=== PATIENT | male | born 1975 | race Caucasian/White ===

== ENCOUNTER 2021-05-22 14:03 | Inpatient (IN) | payer OTHER ==
--- NOTE | 2021-05-22 17:56 | ED ---
General Adult HPI - General Chief complaint: Upper Respiratory Infection Stated complaint: Cough Time Seen by Provider: 05/22/21 17:45 Source: patient, family (mom), RN notes reviewed, old records reviewed Limitations: no limitations - History of Present Illness Initial comments: Well-appearing 45-year-old male, alert and oriented 4, presents to the emergency room with complaints of 3 weeks of shortness of breath, cough and body aches. Patient states he had a tele-health visit and was prescribed a Z-Neil and prednisone with albuterol. He states he has not been using the albuterol regularly. Patient states he continues to have shortness of breath with exertion. He denies any fevers. His is positive for coronavirus. He denies any other medical history, is a nonsmoker. -: days(s) (13) Location: chest Radiation: non-radiation Severity scale (1-10): 0 Consistency: constant Improves with: rest Worsens with: other (exertion) Associated Symptoms: cough, loss of appetite, shortness of breath Treatments Prior to Arrival: other (zpack, steroids, albuterol) - Related Data Home Medications Medication Instructions Recorded Confirmed Albuterol Inhaler [Ventolin Hfa 2 puff INHALATION RT-Q4H PRN 05/22/21 05/22/21 Inhaler] Ascorbic Acid [Vitamin C] 500 mg PO DAILY 05/22/21 05/22/21 Benzonatate [Tessalon Perles] 100 mg PO TID PRN 05/22/21 05/22/21 Cholecalciferol (Vitamin D3) 125 mcg PO DAILY 05/22/21 05/22/21 [Vitamin D3 (125 MCG = 5,000 IU)] Zinc Gluconate [Zinc] 50 mg PO DAILY 05/22/21 05/22/21 predniSONE 50 mg PO DAILY 05/22/21 05/22/21 Previous Rx's Medication Instructions Recorded Albuterol Inhaler [Ventolin Hfa 2 puff INHALATION RT-QID PRN #8 gm 05/22/21 Inhaler] Allergies Allergy/AdvReac Type Severity Reaction Status Date / Time No Known Allergies Allergy Verified 05/22/21 21:49 Review of Systems ROS Statement: Those systems with pertinent positive or pertinent negative responses have been documented in the HPI. ROS Other: All systems not noted in ROS Statement are negative. Past Medical History Past Medical History: No Reported History History of Any Multi-Drug Resistant Organisms: None Reported Past Surgical History: Orthopedic Surgery Past Psychological History: No Psychological Hx Reported Smoking Status: Never smoker Past Alcohol Use History: None Reported Past Drug Use History: None Reported General Exam Limitations: no limitations General appearance: alert, in no apparent distress Head exam: Present: atraumatic, normocephalic, normal inspection Eye exam: Present: normal appearance, EOMI. Absent: scleral icterus, conjunctival injection, periorbital swelling ENT exam: Present: normal exam, normal oropharynx, mucous membranes moist Neck exam: Present: normal inspection, full ROM. Absent: tenderness, meningismus, lymphadenopathy, thyromegaly Respiratory exam: Present: normal lung sounds bilaterally. Absent: respiratory distress, wheezes, rales, rhonchi, stridor Cardiovascular Exam: Present: regular rate, normal rhythm, normal heart sounds. Absent: systolic murmur, diastolic murmur, rubs, gallop, clicks GI/Abdominal exam: Present: soft, normal bowel sounds. Absent: distended, tenderness, guarding, rebound, rigid Extremities exam: Present: normal inspection, full ROM, normal capillary refill. Absent: tenderness, pedal edema, joint swelling, calf tenderness Back exam: Absent: tenderness, CVA tenderness (R), CVA tenderness (L) Neurological exam: Present: alert, oriented X3 Psychiatric exam: Present: normal affect, normal mood Skin exam: Present: warm, dry, intact, normal color. Absent: rash, cyanosis, diaphoretic, petechiae, pallor Course Vital Signs 05/22/21 05/22/21 05/22/21 14:41 17:43 18:00 Temperature 98.1 F Pulse Rate 98 93 Respiratory 18 18 Rate Blood Pressure 134/93 166/90 O2 Sat by Pulse 88 L 84 L 92 L Oximetry 05/22/21 05/22/21 05/22/21 18:30 20:00 20:41 Temperature Pulse Rate Respiratory 18 Rate Blood Pressure 144/84 O2 Sat by Pulse 90 L Oximetry 05/22/21 05/22/21 21:00 21:15 Temperature Pulse Rate 87 Respiratory 18 Rate Blood Pressure 136/86 O2 Sat by Pulse 93 L 92 L Oximetry - Reevaluation(s) Reevaluation #1: 05/22/21 20:32 Patient was given albuterol treatment his oxygen saturation is 93% on room air. Will continue to monitor oxygen saturation with plan to discharge if no further hypoxia Time: 20:32 Medical Decision Making - Medical Decision Making Well-appearing 45-year-old male, alert and oriented 4, presents to the emergency room with complaints of 3 weeks of shortness of breath, cough and body aches. He denies chest pain, nausea or vomiting. He was prescribed a Z-Neil and prednisone with albuterol and continues to have shortness of breath with exertion. He denies any fevers. His is also positive for Covid. He denies any other medical history, he is a nonsmoker. Chest x-ray shows patchy bilateral interstitial and airspace pneumonia. Patient is coronavirus positive. He has oxygen saturation 87% on room air after albuterol. Labs show white blood cell count 12.7 with a left shift. Patient was given albuterol, Tylenol and 500 mL bolus normal saline in the emergency room. He will be admitted with hypoxia and covid. Case discussed with Dr. Farnsworth. - Lab Data Result diagrams: 05/22/21 19:32 05/22/21 19:32 Lab Results 05/22/21 05/22/21 05/22/21 Range/Units 14:44 19:32 19:32 WBC 12.7 H (3.8-10.6) k/uL RBC 5.64 (4.30-5.90) m/uL Hgb 17.6 H (13.0-17.5) gm/dL Hct 54.8 H (39.0-53.0) % MCV 97.3 (80.0-100.0) fL MCH 31.2 (25.0-35.0) pg MCHC 32.1 (31.0-37.0) g/dL RDW 12.6 (11.5-15.5) % Plt Count 393 (150-450) k/uL MPV 9.0 Neutrophils % 82 % Lymphocytes % 10 % Monocytes % 5 % Eosinophils % 0 % Basophils % 1 % Neutrophils # 10.4 H (1.3-7.7) k/uL Lymphocytes # 1.3 (1.0-4.8) k/uL Monocytes # 0.6 (0-1.0) k/uL Eosinophils # 0.0 (0-0.7) k/uL Basophils # 0.1 (0-0.2) k/uL Sodium 136 L (137-145) mmol/L Potassium 5.9 H (3.5-5.1) mmol/L Chloride 103 (98-107) mmol/L Carbon Dioxide 21 L (22-30) mmol/L Anion Gap 12 mmol/L BUN 26 H (9-20) mg/dL Creatinine 0.91 (0.66-1.25) mg/dL Est GFR (CKD-EPI)AfAm >90 (>60 ml/min/1.73 sqM) Est GFR (CKD-EPI)NonAf >90 (>60 ml/min/1.73 sqM) Glucose 103 H (74-99) mg/dL Calcium 8.7 (8.4-10.2) mg/dL Coronavirus (PCR) Detected A (Not Detectd) Disposition Clinical Impression: COVID-19, Hypoxia Disposition: ADMITTED IP TO THIS [facility] Condition: Good Is patient prescribed a controlled substance at d/c from ED?: No Decision Date: 05/22/21 Decision Time: 20:55
[2021-05-22] MEDS ORDERED: SODIUM CHLORIDE 0.9% 500 ML 500 ML IV STA (18:32)
[2021-05-22] MEDS ORDERED: ALBUTEROL HFA INHALER INHALATION STA (18:57)
--- NOTE | 2021-05-22 19:08 | XR ---
EXAMINATION TYPE: XR chest 2V DATE OF EXAM: 05/22/2021 COMPARISON: NONE HISTORY: Cough. Short of breath TECHNIQUE: 2 views FINDINGS: Heart and mediastinum are normal. There is some patchy bilateral interstitial and airspace infiltrate throughout the lungs. There are no hilar masses. Mediastinum within normal limits. There i s no pleural effusion. Bony thorax is intact. IMPRESSION: Patchy bilateral interstitial and airspace pneumonia.
[2021-05-22 20:05] LABS: African American GFR (CKD) >90 (>60 ml/min/1.73 sqM); Anion Gap 12 mmol/L; Blood Urea Nitrogen 26 mg/dL (9-20); Calcium 8.7 mg/dL (8.4-10.2); Carbon Dioxide 21 mmol/L (22-30); Chloride 103 mmol/L (98-107); Glucose 103 mg/dL (74-99); Non-African American GFR(CKD) >90 (>60 ml/min/1.73 sqM); Sodium 136 mmol/L (137-145)
[2021-05-22 20:12] LABS: Potassium 5.9 mmol/L (3.5-5.1)
[2021-05-22 20:27] LABS: Basophils # (A) 0.1 k/uL (0-0.2); Basophils % (A) 1 %; Eosinophils % (A) 0 %; HCT 54.8 % (39.0-53.0); HGB 17.6 gm/dL (13.0-17.5); Lymphocytes # (A) 1.3 k/uL (1.0-4.8); Lymphocytes % (A) 10 %; MCH 31.2 pg (25.0-35.0); MCHC 32.1 g/dL (31.0-37.0); MCV 97.3 fL (80.0-100.0); Monocytes # (A) 0.6 k/uL (0-1.0); Monocytes % (A) 5 %; Neutrophils # (A) 10.4 k/uL (1.3-7.7); Neutrophils % (A) 82 %; Platelet Count 393 k/uL (150-450); RBC 5.64 m/uL (4.30-5.90); RDW 12.6 % (11.5-15.5); WBC 12.7 k/uL (3.8-10.6)
[2021-05-22] MEDS ORDERED: ACETAMINOPHEN TAB 325 MG TAB PO PRN (20:55)
[2021-05-22] MEDS ORDERED: NALOXONE 0.4 MG/ML 1 ML VIAL IV PRN (20:55)
[2021-05-22] MEDS ORDERED: ALBUTEROL HFA INHALER INHALATION PRN (23:20)
[2021-05-22] MEDS ORDERED: dexAMETHasone 2 MG TAB PO STA (23:20)
[2021-05-22] MEDS ORDERED: MELATONIN 5 MG TABLET PO PRN (23:20)
--- NOTE | 2021-05-22 23:21 | P.HPIM ---
History of Present Illness H&P Date: 05/22/21 The patient is a 45-year-old male with no known PMH who presents to the emergency room with complaints of nonproductive cough, myalgia, shortness of breath, and fatigue. The patient reports that his symptoms started roughly 2 weeks ago, and that his shortness of breath is only progressively worsened. The patient and his took at home COVID-19 tests for which his tested positive although he was negative. She was speaking with his mother on the phone today who noticed that he sounded different and out of breath during the conversation so she advise him to come to the emergency room. The patient reports improvement in his breathing since starting supplemental oxygen in the emergency room. He denied chest discomfort, nausea, vomiting, diaphoresis. Reports anorexia over the initial first week after his onset of symptoms but states that his appetite has not improved. Denied headaches, abdominal pain, diarrhea. Chest x-ray was consistent with atypical pneumonia. The patient had and SpO2 low of 84% in the emergency room on room air which improved to 94% with 2 L nasal cannula oxygen. Review of systems: Pertinent positives and negatives as discussed in HPI, a complete review of systems was performed and all other systems are negative. Physical examination: General: non toxic, no distress, appears at stated age, obese Derm: no unusual rashes/lesions no unusual ecchymoses, warm, dry Head: atraumatic, normocephalic, symmetric Eyes: EOMI, no lid lag, anicteric sclera, pupils equal round reactive to light ENT: Nose and ears atraumatic, no thrush, no pharyngeal erythema Neck: No thyromegaly, no cervical lymphadenopathy, trachea midline, supple Mouth: no lip lesion, mucus membranes moist Cardiovascular: S1S2 reg, no murmur, positive posterior tibial pulse bilateral, no edema, capillary refill less than 2 seconds Lungs: Scattered rhonchi, no wheezing, no accessory muscle use Abdominal: soft, nontender to palpation, no guarding, no appreciable organomegaly, normal bowel sounds Ext: no gross muscle atrophy, muscle strength 5 out of 5 in all 4 extremities grossly, no contractures, Neuro: CN II-XI grossly intact, light touch intact all 4 extremities, finger to nose within normal limits, Psych: Alert, oriented, appropriate affect Assessment/plan COVID 19 pneumonia and acute hypoxic respiratory failure -Continue Decadron -Zinc, vitamin C, vitamin D, melatonin -Monitor inflammatory markers -Pulmonary consulted DVT prophylaxis -Lovenox The patient is admitted with an anticipated greater than 2 midnight stay for evaluation of COVID CODE STATUS: Full Code Discussed with: Patient Anticipated discharge date: 2-[address]: Home Past Medical History Past Medical History: No Reported History History of Any Multi-Drug Resistant Organisms: None Reported Past Surgical History: Orthopedic Surgery Past Psychological History: No Psychological Hx Reported Smoking Status: Never smoker Past Alcohol Use History: None Reported Past Drug Use History: None Reported - Past Family History Mother Family Medical History: Hypertension Medications and Allergies Home Medications Medication Instructions Recorded Confirmed Type Albuterol Inhaler [Ventolin Hfa 2 puff INHALATION RT-Q4H PRN 05/22/21 05/22/21 History Inhaler] Albuterol Inhaler [Ventolin Hfa 2 puff INHALATION RT-QID PRN #8 gm 05/22/21 Rx Inhaler] Ascorbic Acid [Vitamin C] 500 mg PO DAILY 05/22/21 05/22/21 History Benzonatate [Tessalon Perles] 100 mg PO TID PRN 05/22/21 05/22/21 History Cholecalciferol (Vitamin D3) 125 mcg PO DAILY 05/22/21 05/22/21 History [Vitamin D3 (125 MCG = 5,000 IU)] Zinc Gluconate [Zinc] 50 mg PO DAILY 05/22/21 05/22/21 History predniSONE 50 mg PO DAILY 05/22/21 05/22/21 History Allergies Allergy/AdvReac Type Severity Reaction Status Date / Time No Known Allergies Allergy Verified 05/22/21 21:49 Physical Exam Vitals: Vital Signs Temp Pulse Pulse Resp BP BP Pulse Ox 05/22/21 23:09 98.3 F 105 H 18 144/81 91 L 05/22/21 21:15 92 L 05/22/21 21:00 87 18 136/86 93 L 05/22/21 20:41 144/84 05/22/21 20:00 90 L 05/22/21 18:30 18 05/22/21 18:00 92 L 05/22/21 17:43 93 18 166/90 84 L 05/22/21 14:41 98.1 F 98 18 134/93 88 L Intake and Output 05/22/21 05/22/2105/23/21 14:59 22:59 06:59 Intake Total 120 Balance 120 Intake: Oral 120 Other: Weight 117.934 kg Results CBC & Chem 7: 05/22/21 19:32 05/22/21 19:32 Labs: Abnormal Lab Results - Last 24 Hours (Table) 05/22/21 05/22/21 05/22/21 Range/Units 14:44 19:32 19:32 WBC 12.7 H (3.8-10.6) k/uL Hgb 17.6 H (13.0-17.5) gm/dL Hct 54.8 H (39.0-53.0) % Neutrophils # 10.4 H (1.3-7.7) k/uL Sodium 136 L (137-145) mmol/L Potassium 5.9 H (3.5-5.1) mmol/L Carbon Dioxide 21 L (22-30) mmol/L BUN 26 H (9-20) mg/dL Glucose 103 H (74-99) mg/dL Coronavirus (PCR) Detected A (Not Detectd)
[2021-05-23] MEDS: CHOLECALCIFEROL 25 MCG (1000 IU) TABLET PO SCH (07:04)
[2021-05-23] MEDS: ENOXAPARIN 40 MG/0.4 ML SYRINGE SQ SCH (07:05)
[2021-05-23] MEDS: ASCORBIC ACID 500 MG TAB PO SCH (07:05)
[2021-05-23] MEDS: ZINC SULFATE 220 MG CAP PO SCH (07:05)
[2021-05-23] MEDS: ALBUTEROL HFA INHALER INHALATION SCH ×4 (07:19→19:54)
[2021-05-23] MEDS ORDERED: dexAMETHasone 2 MG TAB PO SCH (09:00)
--- NOTE | 2021-05-23 11:40 | P.PN ---
Subjective Progress Note Date: 05/23/21 Principal diagnosis: sob Feeling better today. Breathing is improved. No pain, no fevers. Objective - Vital Signs Vital signs: Vital Signs Temp 98.2 F 05/23/21 10:00 Pulse 84 05/23/21 10:00 Resp 16 05/23/21 10:00 BP 145/87 05/23/21 10:00 Pulse Ox 90 L 05/23/21 10:00 Intake & Output 05/22/21 05/23/21 05/23/21 18:59 06:59 18:59 Intake Total 120 Balance 120 Weight 117.934 kg 117.934 kg Intake: Oral 120 Other: # Voids 2 - Exam Constitutional: No acute distress, conversant, pleasant Eyes:Anicteric sclerae, moist conjunctiva, no lid-lag, PERRLA, ENMT: Oropharynx clear, no erythema, exudates Neck: Supple, FROM, no masses, or JVD, No carotid bruits, No thyromegaly Lungs: Clear to auscultation, Clear to percussion, Normal respiratory effort, no accessory muscle use Cardiovascular: Heart regular in rate and rhythm, No murmurs, gallops, or rubs, No peripheral edema Abdominal: Soft, Nontender, no guarding, rebound or rigidity, Normoactive bowel sounds, No hepatomegaly, No splenomegaly, No palpable mass Skin: Normal temperature, tone, texture, turgor, no induration, No subcutaneous nodules, No rash, lesions, No ulcers Extremities: No digital cyanosis, No clubbing, Pedal pulses intact and symmetrical, Radial pulses intact and symmetrical, No calf tenderness Psychiatric: Alert and oriented to person, place and time, appropriate affect, intact judgement Neuro: Muscles Strength 5/5 in all 4 extremities, Sensation to light touch grossly present throughout, Cranial nerves II-XII grossly intact, no focal sensory deficits - Labs CBC & Chem 7: 05/22/21 19:32 05/22/21 19:32 Labs: Abnormal Lab Results - Last 24 Hours (Table) 05/22/21 05/22/21 05/22/21 Range/Units 14:44 19:32 19:32 WBC 12.7 H (3.8-10.6) k/uL Hgb 17.6 H (13.0-17.5) gm/dL Hct 54.8 H (39.0-53.0) % Neutrophils # 10.4 H (1.3-7.7) k/uL Sodium 136 L (137-145) mmol/L Potassium 5.9 H (3.5-5.1) mmol/L Carbon Dioxide 21 L (22-30) mmol/L BUN 26 H (9-20) mg/dL Glucose 103 H (74-99) mg/dL Coronavirus (PCR) Detected A (Not Detectd) Assessment and Plan Plan: COVID 19 pneumonia and acute hypoxic respiratory failure -Continue Decadron -Zinc, vitamin C, vitamin D, melatonin -Monitor inflammatory markers -Pulmonary consulted DVT prophylaxis -Lovenox CODE STATUS: Full Code Discussed with: Patient Anticipated discharge date: 1-[address]: Home
[2021-05-23 12:32] LABS: C Reactive Protein 5.4 mg/dL (<1.0)
--- NOTE | 2021-05-23 13:46 | P.CNPUL ---
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 Apparently patient was treated on outpatient basis with a Z-Neil and prednisone, with no improvement. One week ago he had a home test for COVID-19 and he tested negative however his tested positive. Patient is not-vaccinated against COVID-19. In view of worsening symptoms he came in for evaluation, patient was hypoxic with a pulse ox of 84-88%, despite supplemental oxygen, he is currently on 3 L, pulse ox is 90-92%. Mildly short of breath, coughing. His chest x-ray bilateral interstitial and airspace pneumonia. COVID-19 PCR was positive. The rest of blood work has been reviewed showing white blood cell count of 12.7, hemoglobin of 17.6, hematocrit of 54.8, d-dimer is 0.92, sodium is 136, potass ium is 5.9, chloride is 103, BUN is 26, creatinine 0.9, LDH is 1235, CRP is 5.4. Patient is outside the window for Remdesivir, he was started on Decadron 6 mg daily, prophylactic Lovenox, multivitamins, and albuterol inhaler. Review of Systems All systems: negative Constitutional: Denies chills, Denies fever Eyes: denies blurred vision, denies pain Ears, nose, mouth and throat: Denies headache, Denies sore throat Cardiovascular: Denies chest pain, Denies shortness of breath Respiratory: Reports dyspnea, Denies cough Gastrointestinal: Denies abdominal pain, Denies diarrhea, Denies nausea, Denies vomiting Musculoskeletal: Denies myalgias Integumentary: Denies pruritus, Denies rash Neurological: Denies numbness, Denies weakness Psychiatric: Denies anxiety, Denies depression Endocrine: Denies fatigue, Denies weight change Past Medical History Past Medical History: No Reported History History of Any Multi-Drug Resistant Organisms: None Reported Past Surgical History: Orthopedic Surgery Additional Past Surgical History / Comment(s): Henny elbow Past Anesthesia/Blood Transfusion Reactions: No Reported Reaction Past Psychological History: No Psychological Hx Reported Smoking Status: Never smoker Past Alcohol Use History: None Reported Past Drug Use History: None Reported - Past Family History Mother Family Medical History: Hypertension Medications and Allergies Home Medications Medication Instructions Recorded Confirmed Type Albuterol Inhaler [Ventolin Hfa 2 puff INHALATION RT-Q4H PRN 05/22/21 05/22/21 History Inhaler] Albuterol Inhaler [Ventolin Hfa 2 puff INHALATION RT-QID PRN #8 gm 05/22/21 Rx Inhaler] Ascorbic Acid [Vitamin C] 500 mg PO DAILY 05/22/21 05/22/21 History Benzonatate [Tessalon Perles] 100 mg PO TID PRN 05/22/21 05/22/21 History Cholecalciferol (Vitamin D3) 125 mcg PO DAILY 05/22/21 05/22/21 History [Vitamin D3 (125 MCG = 5,000 IU)] Zinc Gluconate [Zinc] 50 mg PO DAILY 05/22/21 05/22/21 History predniSONE 50 mg PO DAILY 05/22/21 05/22/21 History Allergies Allergy/AdvReac Type Severity Reaction Status Date / Time No Known Allergies Allergy Verified 05/22/21 21:49 Physical Exam Vitals: Vital Signs Temp Pulse Pulse Resp BP BP Pulse Ox 05/23/21 10:00 98.2 F 84 16 145/87 90 L 05/23/21 06:27 97.8 F 78 18 119/76 90 L 05/23/21 02:00 98.0 F 85 22 131/78 92 L 05/22/21 23:09 98.3 F 105 H 18 144/81 91 L 05/22/21 21:15 92 L 05/22/21 21:00 87 18 136/86 93 L 05/22/21 20:41 144/84 05/22/21 20:00 90 L 05/22/21 18:30 18 05/22/21 18:00 92 L 05/22/21 17:43 93 18 166/90 84 L 05/22/21 14:41 98.1 F 98 18 134/93 88 L Intake and Output 05/22/21 05/23/21 05/23/21 22:59 06:59 14:59 Intake Total 120 Balance 120 Intake: Oral 120 Other: # Voids 2 Weight 117.934 kg GENERAL EXAM: Alert, very pleasant, 45-year-old white male, on 3 L of oxygen with a pulse ox of 90-92% comfortable in no apparent distress. HEAD: Normocephalic/atraumatic. EYES: Normal reaction of pupils, equal size. Conjunctiva pink, sclera white. NOSE: Clear with pink turbinates. THROAT: No erythema or exudates. NECK: No masses, no JVD, no thyroid enlargement, no adenopathy. CHEST: No chest wall deformity. Symmetrical expansion. LUNGS: Equal air entry with bilateral crackles at bilateral bases CVS: Regular rate and rhythm, normal S1 and S2, no gallops, no murmurs, no rubs ABDOMEN: Soft, nontender. No hepatosplenomegaly, normal bowel sounds, no guarding or rigidity. EXTREMITIES: No clubbing, no edema, no cyanosis, 2+ pulses and upper and lower extremities. MUSCULOSKELETAL: Muscle strength and tone normal. SPINE: No scoliosis or deformity SKIN: No rashes CENTRAL NERVOUS SYSTEM: Alert and oriented -3. No focal deficits, tone is normal in all 4 extremities. PSYCHIATRIC: Alert and oriented -3. Appropriate affect. Intact judgment and insight. Results - Laboratory Findings CBC and BMP: 05/22/21 19:32 05/22/21 19:32 PT/INR, D-dimer D-Dimer 0.92 mg/L FEU (<0.60) H 05/23/21 11:57 Abnormal lab findings: Abnormal Labs 05/22/21 05/22/21 05/22/21 14:44 19:32 19:32 WBC 12.7 H Hgb 17.6 H Hct 54.8 H Neutrophils # 10.4 H D-Dimer Sodium 136 L Potassium 5.9 H Carbon Dioxide 21 L BUN 26 H Glucose 103 H Lactate Dehydrogenase C-Reactive Protein Coronavirus (PCR) Detected A 05/23/21 05/23/21 11:57 11:57 WBC Hgb Hct Neutrophils # D-Dimer 0.92 H Sodium Potassium Carbon Dioxide BUN Glucose Lactate Dehydrogenase 1235 H C-Reactive Protein 5.4 H Coronavirus (PCR) - Diagnostic Findings Chest x-ray: report reviewed, image reviewed Assessment and Plan Plan: Assessment: #1. Acute hypoxic respiratory failure, related to COVID-19 pneumonia, patient presented to the emergency department on 05/22/2021 with 2 week history of cough, body aches. Patient was treated on outpatient basis with a combination of azithromycin and prednisone, without improvement. Not vaccinated against COVID-19. Outside the window for Remdesivir, was started on Decadron, prophylactic Lovenox #2. Increased inflammatory markers related to the above #3. Mildly elevated d-dimer, we will follow #4. Nonsmoker #5. Hyperkalemia with potassium 5.9, possibly related to dehydration, will be followed and patient was given IV fluids Plan: He is outside the window for Remdesivir Continue Decadron, continue prophylactic Lovenox Inflammatory markers were noted D-dimer was noted Will obtain lower extremity Dopplers to rule out possibility of DVT Continue multivitamins Obtain follow-up BMP to recheck electrolytes and serum potassium We will obtain a pro-calcitonin level Follow clinical status and make recommendations accordingly I performed a history & physical examination of the patient and discussed their management with my nurse practitioner, Yaquelin Dotson. I reviewed the nurse practitioner's note and agree with the documented findings and plan of care. Lung sounds are positive for diminished breath sounds with bilateral rales throughout the lung ledesma. The findings and the impression was discussed with the patient. I attest to the documentation by the nurse practitioner. Time with Patient: Greater than 30
--- NOTE | 2021-05-23 14:42 | US ---
EXAMINATION TYPE: US venous doppler duplex LE DATE OF EXAM: 05/23/2021 2:24 PM COMPARISON: NONE CLINICAL HISTORY: elevated d-dimer. COVID positive SIDE PERFORMED: Bilateral TECHNIQUE: The lower extremity deep venous system is examined utilizing real time linear array sonog ivan with graded compression, doppler sonography and color-flow sonography. VESSELS IMAGED: Common Femoral Vein Deep Femoral Vein Greater Saphenous Vein * Femoral Vein Popliteal Vein Small Saphenous Vein * Proximal Calf Veins (* superficial vessels) Right Leg: Negative for DVT Left Leg: Negative for DVT Rouleaux flow noted left EIV IMPRESSION: Grayscale, color doppler, spectral doppler imaging performed of the deep veins of the lo wer extremities. There is normal flow, compressibility, vascular waveforms.
[2021-05-23] MEDS: dexAMETHasone 2 MG TAB PO SCH (20:03)
[2021-05-24] MEDS: ENOXAPARIN 40 MG/0.4 ML SYRINGE SQ SCH (07:55)
[2021-05-24] MEDS: ZINC SULFATE 220 MG CAP PO SCH (07:55)
[2021-05-24] MEDS: dexAMETHasone 2 MG TAB PO SCH ×2 (07:55→19:33)
[2021-05-24] MEDS: ASCORBIC ACID 500 MG TAB PO SCH (07:55)
[2021-05-24] MEDS: CHOLECALCIFEROL 25 MCG (1000 IU) TABLET PO SCH (07:56)
[2021-05-24] MEDS: ALBUTEROL HFA INHALER INHALATION SCH ×4 (08:13→20:10)
[2021-05-24 09:26] LABS: Basophils # (A) 0.04 X 10*3/uL (0.00-0.10); Basophils % (A) 0.2 %; Eosinophils # (A) 0 X 10*3/uL (0.04-0.35); Eosinophils % (A) 0 %; HCT 47.9 % (39.6-50.0); HGB 15.2 g/dL (13.0-17.0); Lymphocytes # (A) 1.92 X 10*3/uL (0.90-5.00); MCH 30.3 pg (27.0-32.0); MCHC 31.7 g/dL (32.0-37.0); MCV 95.4 fL (80.0-97.0); Mean Platelet Volume 10.6 fL (9.5-12.2); Monocytes # (A) 0.66 X 10*3/uL (0.20-1.00); Monocytes % (A) 3.8 %; Neutrophils # (A) 14.57 X 10*3/uL (1.80-7.70); Neutrophils % (A) 83.8 %; Platelet Count 467 X 10*3/uL (140-440); RBC 5.02 X 10*6/uL (4.40-5.60); RDW 11.9 % (11.5-14.5)
[2021-05-24 11:53] LABS: African American GFR (CKD) 116.3 (60.0-200.0); BUN/Creat Ratio 22.71 Ratio (12.00-20.00); Blood Urea Nitrogen 21.1 mg/dL (9.0-27.0); C Reactive Protein 2.4 mg/dL (0.00-0.80); Carbon Dioxide 22.3 mmol/L (20.0-27.5); Magnesium 2.5 mg/dL (1.5-2.4); Non-African American GFR(CKD) 100.3 (60.0-200.0); Potassium 5.5 mmol/L (3.5-5.5)
--- NOTE | 2021-05-24 13:04 | P.PN ---
Subjective Progress Note Date: 05/24/21 Principal diagnosis: sob He feels short of breath derick when he gets up. He states he recovers within minutes. No pain. No fevers. Still with dry cough. Objective - Vital Signs Vital signs: Vital Signs Temp 97.6 F 05/24/21 10:34 Pulse 89 05/24/21 10:34 Resp 16 05/24/21 10:34 BP 124/79 05/24/21 10:34 Pulse Ox 93 L 05/24/21 10:34 Intake & Output 05/23/21 05/24/21 05/24/21 18:59 06:59 18:59 Intake Total 120 Balance 120 Intake: Oral 120 Other: # Voids 1 3 - Exam Constitutional: No acute distress, conversant, pleasant Eyes:Anicteric sclerae, moist conjunctiva, no lid-lag, PERRLA, ENMT: Oropharynx clear, no erythema, exudates Neck: Supple, FROM, no masses, or JVD, No carotid bruits, No thyromegaly Lungs: Clear to auscultation, Clear to percussion, Normal respiratory effort, no accessory muscle use Cardiovascular: Heart regular in rate and rhythm, No murmurs, gallops, or rubs, No peripheral edema Abdominal: Soft, Nontender, no guarding, rebound or rigidity, Normoactive bowel sounds, No hepatomegaly, No splenomegaly, No palpable mass Skin: Normal temperature, tone, texture, turgor, no induration, No subcutaneous nodules, No rash, lesions, No ulcers Extremities: No digital cyanosis, No clubbing, Pedal pulses intact and symmetrical, Radial pulses intact and symmetrical, No calf tenderness Psychiatric: Alert and oriented to person, place and time, appropriate affect, intact judgement Neuro: Muscles Strength 5/5 in all 4 extremities, Sensation to light touch grossly present throughout, Cranial nerves II-XII grossly intact, no focal sensory deficits - Labs CBC & Chem 7: 05/24/21 05:45 05/24/21 05:45 Labs: Abnormal Lab Results - Last 24 Hours (Table) 05/23/21 05/24/21 05/24/21 Range/Units 11:57 05:45 05:45 WBC 17.40 H (4.50-10.00) X 10*3/uL MCHC 31.7 L (32.0-37.0) g/dL Plt Count 467 H (140-440) X 10*3/uL Immature Gran # 0.21 H (0.00-0.04) X 10*3/uL Neutrophils # 14.57 H (1.80-7.70) X 10*3/uL Eosinophils # 0 L (0.04-0.35) X 10*3/uL D-Dimer (<0.60) mg/L FEU BUN/Creatinine Ratio 22.71 H (12.00-20.00) Ratio Glucose 140 H (70-110) mg/dL Magnesium 2.5 H (1.5-2.4) mg/dL Lactate Dehydrogenase 487 H (120-246) U/L C-Reactive Protein 2.40 H (0.00-0.80) mg/dL Procalcitonin 0.11 H (0.02-0.09) ng/mL 05/24/21 Range/Units 05:45 WBC (4.50-10.00) X 10*3/uL MCHC (32.0-37.0) g/dL Plt Count (140-440) X 10*3/uL Immature Gran # (0.00-0.04) X 10*3/uL Neutrophils # (1.80-7.70) X 10*3/uL Eosinophils # (0.04-0.35) X 10*3/uL D-Dimer 0.85 H (<0.60) mg/L FEU BUN/Creatinine Ratio (12.00-20.00) Ratio Glucose (70-110) mg/dL Magnesium (1.5-2.4) mg/dL Lactate Dehydrogenase (120-246) U/L C-Reactive Protein (0.00-0.80) mg/dL Procalcitonin (0.02-0.09) ng/mL Assessment and Plan Plan: COVID 19 pneumonia and acute hypoxic respiratory failure -Continue Decadron -Zinc, vitamin C, vitamin D, melatonin -Monitor inflammatory markers -Pulmonary following DVT prophylaxis -Lovenox CODE STATUS: Full Code Discussed with: Patient Anticipated discharge date: 1-[address]: Home
--- NOTE | 2021-05-24 13:50 | P.PN ---
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 Apparently patient was treated on outpatient basis with a Z-Neil and prednisone, with no improvement. One week ago he had a home test for COVID-19 and he tested negative however his tested positive. Patient is not-vaccinated against COVID-19. In view of worsening symptoms he came in for evaluation, patient was hypoxic with a pulse ox of 84-88%, despite supplemental oxygen, he is currently on 3 L, pulse ox is 90-92%. Mildly short of breath, coughing. His chest x-ray bilateral interstitial and airspace pneumonia. COVID-19 PCR was positive. The rest of blood work has been reviewed showing white blood cell count of 12.7, hemoglobin of 17.6, hematocrit of 54.8, d-dimer is 0.92, sodium is 136, potassium is 5.9, chloride is 103, BUN is 26, creatinine 0.9, LDH is 1235, CRP is 5.4. Patient is outside the window for Remdesivir, he was started on Decadron 6 mg daily, prophylactic Lovenox, multivitamins, and albuterol inhaler. On 05/24/2001 patient is seen in follow-up on medical surgical floor, his systolic in the chair, in no acute distress, she does have exertional dyspnea, when walking to the bathroom but no acute distress, he does recover would rest, heat remains on 3 L of oxygen pulse ox is 93%. chest discomfort, patient has been afebrile, his inflammatory markers are improving on today's labs. he remains on a twice-daily dose of decadron 6 mg daily, he is on lovenox 40 mg daily, he is on vitamin c, d and zinc. today's labs have been reviewed, his white blood cell count is 17.4, hemoglobin is 15.2, d-dimer is 0.85, electrolytes and renal profile are within normal limits. pro-calcitonin level was negative at 0.11. Objective - Vital Signs Vital signs: Vital Signs Temp 97.6 F 05/24/21 10:34 Pulse 89 05/24/21 10:34 Resp 16 05/24/21 10:34 BP 124/79 05/24/21 10:34 Pulse Ox 93 L 05/24/21 10:34 Intake & Output 05/23/21 05/24/21 05/24/21 18:59 06:59 18:59 Intake Total 120 Balance 120 Intake: Oral 120 Other: # Voids 1 3 - Exam GENERAL EXAM: Alert, very pleasant, 45-year-old white male, on 3 L of oxygen with a pulse ox of 93% comfortable in no apparent distress. HEAD: Normocephalic/atraumatic. EYES: Normal reaction of pupils, equal size. Conjunctiva pink, sclera white. NOSE: Clear with pink turbinates. THROAT: No erythema or exudates. NECK: No masses, no JVD, no thyroid enlargement, no adenopathy. CHEST: No chest wall deformity. Symmetrical expansion. LUNGS: Equal air entry with bilateral crackles at bilateral bases CVS: Regular rate and rhythm, normal S1 and S2, no gallops, no murmurs, no rubs ABDOMEN: Soft, nontender. No hepatosplenomegaly, normal bowel sounds, no guarding or rigidity. EXTREMITIES: No clubbing, no edema, no cyanosis, 2+ pulses and upper and lower extremities. MUSCULOSKELETAL: Muscle strength and tone normal. SPINE: No scoliosis or deformity SKIN: No rashes CENTRAL NERVOUS SYSTEM: Alert and oriented -3. No focal deficits, tone is normal in all 4 extremities. PSYCHIATRIC: Alert and oriented -3. Appropriate affect. Intact judgment and insight. - Labs CBC & Chem 7: 05/24/21 05:45 05/24/21 05:45 Labs: Abnormal Lab Results - Last 24 Hours (Table) 05/23/21 05/24/21 05/24/21 Range/Units 11:57 05:45 05:45 WBC 17.40 H (4.50-10.00) X 10*3/uL MCHC 31.7 L (32.0-37.0) g/dL Plt Count 467 H (140-440) X 10*3/uL Immature Gran # 0.21 H (0.00-0.04) X 10*3/uL Neutrophils # 14.57 H (1.80-7.70) X 10*3/uL Eosinophils # 0 L (0.04-0.35) X 10*3/uL D-Dimer (<0.60) mg/L FEU BUN/Creatinine Ratio 22.71 H (12.00-20.00) Ratio Glucose 140 H (70-110) mg/dL Magnesium 2.5 H (1.5-2.4) mg/dL Lactate Dehydrogenase 487 H (120-246) U/L C-Reactive Protein 2.40 H (0.00-0.80) mg/dL Procalcitonin 0.11 H (0.02-0.09) ng/mL 05/24/21 Range/Units 05:45 WBC (4.50-10.00) X 10*3/uL MCHC (32.0-37.0) g/dL Plt Count (140-440) X 10*3/uL Immature Gran # (0.00-0.04) X 10*3/uL Neutrophils # (1.80-7.70) X 10*3/uL Eosinophils # (0.04-0.35) X 10*3/uL D-Dimer 0.85 H (<0.60) mg/L FEU BUN/Creatinine Ratio (12.00-20.00) Ratio Glucose (70-110) mg/dL Magnesium (1.5-2.4) mg/dL Lactate Dehydrogenase (120-246) U/L C-Reactive Protein (0.00-0.80) mg/dL Procalcitonin (0.02-0.09) ng/mL Assessment and Plan Plan: Assessment: #1. Acute hypoxic respiratory failure, related to COVID-19 pneumonia, patient presented to the emergency department on 05/22/2021 with 2 week history of cough, body aches. Patient was treated on outpatient basis with a combination of azithromycin and prednisone, without improvement. Not vaccinated against COVID-19. Outside the window for Remdesivir, was started on Decadron, prophylactic Lovenox #2. Increased inflammatory markers related to the above, improving #3. Mildly elevated d-dimer, we will follow #4. Nonsmoker #5. Hyperkalemia with potassium 5.9, possibly related to dehydration, will be followed and patient was given IV fluids, improved on today's lab #6. Plan: Still has exertional dyspnea, but no acute distress, he remains on 3 L of oxygen No fever or chills No acute distress, continues on twice-daily dose of Decadron, continues on Lovenox 40 mg Inflammatory markers are improving D-dimer is slightly improved Lower extremity Dopplers were negative for DVT Continue multivitamins Procalcitonin level is negative No fever or chills, vital signs have been stable Follow clinical status and make recommendations accordingly I performed a history & physical examination of the patient and discussed their management with my nurse practitioner, Yaquelin Dotson. I reviewed the nurse practitioner's note and agree with the documented findings and plan of care. Lung sounds are positive for diminished breath sounds with bilateral rales throughout the lung ledesma. The findings and the impression was discussed with the patient. I attest to the documentation by the nurse practitioner. Time with Patient: Less than 30
[2021-05-25] MEDS: ZINC SULFATE 220 MG CAP PO SCH (08:15)
[2021-05-25] MEDS: CHOLECALCIFEROL 25 MCG (1000 IU) TABLET PO SCH (08:15)
[2021-05-25] MEDS: dexAMETHasone 2 MG TAB PO SCH ×2 (08:16→21:12)
[2021-05-25] MEDS: ASCORBIC ACID 500 MG TAB PO SCH (08:16)
[2021-05-25] MEDS: ENOXAPARIN 40 MG/0.4 ML SYRINGE SQ SCH (08:16)
--- NOTE | 2021-05-25 09:49 | P.PN ---
Subjective Progress Note Date: 05/25/21 Principal diagnosis: sob Feeling better overall but O2 sats dropped to the 80s on 3L when he went to the bathroom. It is currently back up. Objective - Vital Signs Vital signs: Vital Signs Temp 97.9 F 05/25/21 06:00 Pulse 85 05/25/21 06:00 Resp 17 05/25/21 06:00 BP 125/81 05/25/21 06:00 Pulse Ox 96 05/25/21 06:00 Intake & Output 05/24/21 05/25/21 05/25/21 18:59 06:59 18:59 Intake Total 356 236 Balance 356 236 Intake: Oral 356 236 Other: # Voids 1 2 # Bowel Movements 1 - Exam Constitutional: No acute distress, conversant, pleasant Eyes:Anicteric sclerae, moist conjunctiva, no lid-lag, PERRLA, ENMT: Oropharynx clear, no erythema, exudates Neck: Supple, FROM, no masses, or JVD, No carotid bruits, No thyromegaly Lungs: Clear to auscultation, Clear to percussion, Normal respiratory effort, no accessory muscle use Cardiovascular: Heart regular in rate and rhythm, No murmurs, gallops, or rubs, No peripheral edema Abdominal: Soft, Nontender, no guarding, rebound or rigidity, Normoactive bowel sounds, No hepatomegaly, No splenomegaly, No palpable mass Skin: Normal temperature, tone, texture, turgor, no induration, No subcutaneous nodules, No rash, lesions, No ulcers Extremities: No digital cyanosis, No clubbing, Pedal pulses intact and symmetrical, Radial pulses intact and symmetrical, No calf tenderness Psychiatric: Alert and oriented to person, place and time, appropriate affect, intact judgement Neuro: Muscles Strength 5/5 in all 4 extremities, Sensation to light touch grossly present throughout, Cranial nerves II-XII grossly intact, no focal sensory deficits - Labs CBC & Chem 7: 05/24/21 05:45 05/24/21 05:45 Labs: Abnormal Lab Results - Last 24 Hours (Table) 05/24/21 Range/Units 05:45 BUN/Creatinine Ratio 22.71 H (12.00-20.00) Ratio Glucose 140 H (70-110) mg/dL Magnesium 2.5 H (1.5-2.4) mg/dL Lactate Dehydrogenase 487 H (120-246) U/L C-Reactive Protein 2.40 H (0.00-0.80) mg/dL Assessment and Plan Plan: COVID 19 pneumonia and acute hypoxic respiratory failure -Continue Decadron -Zinc, vitamin C, vitamin D, melatonin -Monitor inflammatory markers -Pulmonary following Obesity -Outpatient weight management. DVT prophylaxis -Lovenox CODE STATUS: Full Code Discussed with: Patient Anticipated discharge date: 1-[address]: Home
[2021-05-25] MEDS: ALBUTEROL HFA INHALER INHALATION SCH ×4 (09:58→19:49)
--- NOTE | 2021-05-25 09:59 | P.PN ---
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 Apparently patient was treated on outpatient basis with a Z-Neil and prednisone, with no improvement. One week ago he had a home test for COVID-19 and he tested negative however his tested positive. Patient is not-vaccinated against COVID-19. In view of worsening symptoms he came in for evaluation, patient was hypoxic with a pulse ox of 84-88%, despite supplemental oxygen, he is currently on 3 L, pulse ox is 90-92%. Mildly short of breath, coughing. His chest x-ray bilateral interstitial and airspace pneumonia. COVID-19 PCR was positive. The rest of blood work has been reviewed showing white blood cell count of 12.7, hemoglobin of 17.6, hematocrit of 54.8, d-dimer is 0.92, sodium is 136, potassium is 5.9, chloride is 103, BUN is 26, creatinine 0.9, LDH is 1235, CRP is 5.4. Patient is outside the window for Remdesivir, he was started on Decadron 6 mg daily, prophylactic Lovenox, multivitamins, and albuterol inhaler. On 05/24/2021 patient is seen in follow-up on medical surgical floor, his systolic in the chair, in no acute distress, she does have exertional dyspnea, when walking to the bathroom but no acute distress, he does recover would rest, heat remains on 3 L of oxygen pulse ox is 93%. chest discomfort, patient has been afebrile, his inflammatory markers are improving on today's labs. he remains on a twice-daily dose of decadron 6 mg daily, he is on lovenox 40 mg daily, he is on vitamin c, d and zinc. today's labs have been reviewed, his white blood cell count is 17.4, hemoglobin is 15.2, d-dimer is 0.85, electrolytes and renal profile are within normal limits. pro-calcitonin level was negative at 0.11. On 05/25/2021 patient seen in follow-up on medical surgical floor. He is awake and alert, in no acute distress, he states he still gets dyspneic with exertion, and that's when he starts coughing as well, but overall he states he is improving, he is tolerating ambulation in the room, he remains on 3 L of oxygen his pulse ox is ranging between 93-96%, lung sounds reveal some limited crackles at the left base posteriorly, the right lung sounds clear. Patient was outside the window for Remdesivir, he is currently on Decadron 6 Mauri twice daily, he is on Lovenox 40 mg once daily, he is on COVID-19 multivitamins. His inflammatory markers are improving, clinically his been stable. No complaints of chest discomfort, his lower extremity Dopplers were completed showing no evidence of DVT. His pro calcitonin level was negative at 0.11. His vital signs have been stable. No fever or chills. Objective - Vital Signs Vital signs: Vital Signs Temp 97.9 F 05/25/21 06:00 Pulse 85 05/25/21 06:00 Resp 17 05/25/21 06:00 BP 125/81 05/25/21 06:00 Pulse Ox 96 05/25/21 06:00 Intake & Output 05/24/21 05/25/21 05/25/21 18:59 06:59 18:59 Intake Total 356 236 Balance 356 236 Intake: Oral 356 236 Other: # Voids 1 2 # Bowel Movements 1 - Exam GENERAL EXAM: Alert, very pleasant, 45-year-old white male, on 3 L of oxygen with a pulse ox of 93-96% comfortable in no apparent distress. HEAD: Normocephalic/atraumatic. EYES: Normal reaction of pupils, equal size. Conjunctiva pink, sclera white. NOSE: Clear with pink turbinates. THROAT: No erythema or exudates. NECK: No masses, no JVD, no thyroid enlargement, no adenopathy. CHEST: No chest wall deformity. Symmetrical expansion. LUNGS: Equal air entry with inspiratory crackles at the left posterior base CVS: Regular rate and rhythm, normal S1 and S2, no gallops, no murmurs, no rubs ABDOMEN: Soft, nontender. No hepatosplenomegaly, normal bowel sounds, no guarding or rigidity. EXTREMITIES: No clubbing, no edema, no cyanosis, 2+ pulses and upper and lower extremities. MUSCULOSKELETAL: Muscle strength and tone normal. SPINE: No scoliosis or deformity SKIN: No rashes CENTRAL NERVOUS SYSTEM: Alert and oriented -3. No focal deficits, tone is normal in all 4 extremities. PSYCHIATRIC: Alert and oriented -3. Appropriate affect. Intact judgment and insight. - Labs CBC & Chem 7: 05/24/21 05:45 05/24/21 05:45 Labs: Abnormal Lab Results - Last 24 Hours (Table) 05/24/21 Range/Units 05:45 BUN/Creatinine Ratio 22.71 H (12.00-20.00) Ratio Glucose 140 H (70-110) mg/dL Magnesium 2.5 H (1.5-2.4) mg/dL Lactate Dehydrogenase 487 H (120-246) U/L C-Reactive Protein 2.40 H (0.00-0.80) mg/dL Assessment and Plan Plan: Assessment: #1. Acute hypoxic respiratory failure, related to COVID-19 pneumonia, patient presented to the emergency department on 05/22/2021 with 2 week history of cough, body aches. Patient was treated on outpatient basis with a combination of azithromycin and prednisone, without improvement. Not vaccinated against COVID-19. Outside the window for Remdesivir, was started on Decadron, prophylactic Lovenox #2. Increased inflammatory markers related to the above, improving #3. Mildly elevated d-dimer, we will follow #4. Nonsmoker #5. Hyperkalemia with potassium 5.9, possibly related to dehydration, will be followed and patient was given IV fluids, improved on today's lab #6. Plan: Clinically patient has remained stable Has not required escalation of oxygen Remains on 3 L of oxygen maintaining O2 saturations at 93-96% Breathing comfortable, still has a cough and exertional dyspnea but no acute distress Vital signs have been stable, no fever or chills Inflammatory markers are improving, Pro calcitonin level is negative If remains stable, consider discharge home in the next 24 hours on home oxygen I performed a history & physical examination of the patient and discussed their management with my nurse practitioner, Yaquelin Dotson. I reviewed the nurse practitioner's note and agree with the documented findings and plan of care. Lung sounds are positive for diminished breath sounds with bilateral rales t hroughout the lung ledesma. The findings and the impression was discussed with the patient. I attest to the documentation by the nurse practitioner. Time with Patient: Less than 30
[2021-05-26] MEDS: ALBUTEROL HFA INHALER INHALATION SCH ×2 (07:26→11:07)
[2021-05-26] MEDS: CHOLECALCIFEROL 25 MCG (1000 IU) TABLET PO SCH (08:18)
[2021-05-26] MEDS: ASCORBIC ACID 500 MG TAB PO SCH (08:18)
[2021-05-26] MEDS: ZINC SULFATE 220 MG CAP PO SCH (08:18)
[2021-05-26] MEDS: ENOXAPARIN 40 MG/0.4 ML SYRINGE SQ SCH (08:18)
[2021-05-26] MEDS: dexAMETHasone 2 MG TAB PO SCH (08:18)
--- NOTE | 2021-05-26 12:28 | P.DS ---
Providers Date of admission: 05/22/21 20:58 Expected date of discharge: 05/26/21 Attending physician: Robin Blanco MD Consults: 05/22/21 20:56 Consult Physician Routine Consulting Provider: Courtney Pardo Consult Reason/Comments: covid 19, hypoxia Do you want consulting provider notified?: Yes Primary care physician: Stated None Hospital Course: 45-year-old male with no known PMH who presents to the emergency room with complaints of nonproductive cough, myalgia, shortness of breath, and fatigue. The patient reports that his symptoms started roughly 2 weeks ago, and that his shortness of breath progressively worsened. The patient and his took at home COVID-19 tests for which his tested positive although he was negative. He was speaking with his mother on the phone today who noticed that he sounded different and out of breath during the conversation so she advise him to come to the emergency room. The patient reports improvement in his breathing since starting supplemental oxygen in the emergency room. He denied chest discomfort, nausea, vomiting, diaphoresis. Denied headaches, abdominal pain, diarrhea. Of note patient was treated by his primary care physician by steroids and azithromycin but he kept getting worse. Chest x-ray was consistent with atypical pneumonia. SpO2 84% in the emergency room on room air which improved to 94% with 2 L nasal cannula oxygen. Covid 19 PCR test was positive in the emergency department. Subsequently he was admitted for further evaluation and management of COVID-19 pneumonia. He was started on steroids and Lovenox for DVT prophylaxis. Supplemental oxygen was kept for sats above 93%. His pro calcitonin level was negative at 0.11. Patient was followed by pulmonary service throughout admission. He remained hypoxic with saturations in the 80s on room air. Required low flow nasal cannula. Today he was cleared by pulmonary for discharge as his condition did not get worse. He was monitored for about 5 days in the hospital. He remains stable. He will be discharged home on oxygen as well as steroid taper. Time for discharge 35 minutes. Patient Condition at Discharge: Good Plan - Discharge Summary Discharge Rx Participant: Yes New Discharge Prescriptions: New Albuterol Inhaler [Ventolin Hfa Inhaler] 2 puff INHALATION RT-QID PRN #8 gm PRN Reason: Dyspnea Dexamethasone [Decadron] 6 mg PO DAILY 7 Days #7 tablet Continue Cholecalciferol (Vitamin D3) [Vitamin D3 (125 MCG = 5,000 IU)] 125 mcg PO DAILY Albuterol Inhaler [Ventolin Hfa Inhaler] 2 puff INHALATION RT-Q4H PRN PRN Reason: Shortness Of Breath Zinc Gluconate [Zinc] 50 mg PO DAILY Ascorbic Acid [Vitamin C] 500 mg PO DAILY Benzonatate [Tessalon Perles] 100 mg PO TID PRN PRN Reason: Cough Discontinued predniSONE 50 mg PO DAILY Discharge Medication List Albuterol Inhaler [Ventolin Hfa Inhaler] 2 puff INHALATION RT-Q4H PRN 05/22/21 [History] Albuterol Inhaler [Ventolin Hfa Inhaler] 2 puff INHALATION RT-QID PRN #8 gm 05/04 [Rx] Ascorbic Acid [Vitamin C] 500 mg PO DAILY 05/22/21 [History] Benzonatate [Tessalon Perles] 100 mg PO TID PRN 05/22/21 [History] Cholecalciferol (Vitamin D3) [Vitamin D3 (125 MCG = 5,000 IU)] 125 mcg PO DAILY 05/22/21 [History] Zinc Gluconate [Zinc] 50 mg PO DAILY 05/22/21 [History] Dexamethasone [Decadron] 6 mg PO DAILY 7 Days #7 tablet 05/26/21 [Rx] Follow up Appointment(s)/Referral(s): [facility],Equipment [NON-STAFF] - (*Please call [facility] once home to arrange delivery of the oxygen concentrator. ) None,Stated [Primary Care Provider] - 1-2 days Courtney Pardo MD [STAFF PHYSICIAN] - 2 Weeks Patient Instructions/Handouts: Coronavirus Disease 2019 (COVID-19)
[2021-05-26 13:53] VITALS: BP 124/88; PULSE 105; RESP 14; TEMP 98.2
--- NOTE | 2021-05-26 14:13 | P.PN ---
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 Apparently patient was treated on outpatient basis with a Z-Neil and prednisone, with no improvement. One week ago he had a home test for COVID-19 and he tested negative however his tested positive. Patient is not-vaccinated against COVID-19. In view of worsening symptoms he came in for evaluation, patient was hypoxic with a pulse ox of 84-88%, despite supplemental oxygen, he is currently on 3 L, pulse ox is 90-92%. Mildly short of breath, coughing. His chest x-ray bilateral interstitial and airspace pneumonia. COVID-19 PCR was positive. The rest of blood work has been reviewed showing white blood cell count of 12.7, hemoglobin of 17.6, hematocrit of 54.8, d-dimer is 0.92, sodium is 136, potassium is 5.9, chloride is 103, BUN is 26, creatinine 0.9, LDH is 1235, CRP is 5.4. Patient is outside the window for Remdesivir, he was started on Decadron 6 mg daily, prophylactic Lovenox, multivitamins, and albuterol inhaler. On 05/24/2021 patient is seen in follow-up on medical surgical floor, his systolic in the chair, in no acute distress, she does have exertional dyspnea, when walking to the bathroom but no acute distress, he does recover would rest, heat remains on 3 L of oxygen pulse ox is 93%. chest discomfort, patient has been afebrile, his inflammatory markers are improving on today's labs. he remains on a twice-daily dose of decadron 6 mg daily, he is on lovenox 40 mg daily, he is on vitamin c, d and zinc. today's labs have been reviewed, his white blood cell count is 17.4, hemoglobin is 15.2, d-dimer is 0.85, electrolytes and renal profile are within normal limits. pro-calcitonin level was negative at 0.11. On 05/25/2021 patient seen in follow-up on medical surgical floor. He is awake and alert, in no acute distress, he states he still gets dyspneic with exertion, and that's when he starts coughing as well, but overall he states he is improving, he is tolerating ambulation in the room, he remains on 3 L of oxygen his pulse ox is ranging between 93-96%, lung sounds reveal some limited crackles at the left base posteriorly, the right lung sounds clear. Patient was outside the window for Remdesivir, he is currently on Decadron 6 Mauri twice daily, he is on Lovenox 40 mg once daily, he is on COVID-19 multivitamins. His inflammatory markers are improving, clinically his been stable. No complaints of chest discomfort, his lower extremity Dopplers were completed showing no evidence of DVT. His pro calcitonin level was negative at 0.11. His vital signs have been stable. No fever or chills. On 05/26/2021 patient seen in follow-up on medical surgical floor. He is breathing comfortably, his cough is improving, his been able to tolerate ambulation in the room, currently on 20 L of oxygen his pulse ox is 92%, his exertional dyspnea slightly improved, lung sounds reveal minimal bibasilar crackles, his been afebrile, vital signs have been stable, no fever or chills, patient has been on Decadron 6 mg twice daily, Lovenox 40 mg daily, his inflammatory markers were improving, likely has been stable, tolerating oral intake, no nausea vomiting or diarrhea. Objective - Vital Signs Vital signs: Vital Signs Temp 98.2 F 05/26/21 13:25 Pulse 105 H 05/26/21 13:25 Resp 14 05/26/21 13:25 BP 124/88 05/26/21 13:25 Pulse Ox 92 L 05/26/21 13:25 Intake & Output 05/25/21 05/26/21 05/26/21 18:59 06:59 18:59 Intake Total 708 Balance 708 Intake: Oral 708 Other: # Voids 1 1 - Exam GENERAL EXAM: Alert, very pleasant, 45-year-old white male, on 2.5 L of oxygen with a pulse ox of 98% comfortable in no apparent distress. HEAD: Normocephalic/atraumatic. EYES: Normal reaction of pupils, equal size. Conjunctiva pink, sclera white. NOSE: Clear with pink turbinates. THROAT: No erythema or exudates. NECK: No masses, no JVD, no thyroid enlargement, no adenopathy. CHEST: No chest wall deformity. Symmetrical expansion. LUNGS: Equal air entry with inspiratory crackles at the left posterior base CVS: Regular rate and rhythm, normal S1 and S2, no gallops, no murmurs, no rubs ABDOMEN: Soft, nontender. No hepatosplenomegaly, normal bowel sounds, no guarding or rigidity. EXTREMITIES: No clubbing, no edema, no cyanosis, 2+ pulses and upper and lower extremities. MUSCULOSKELETAL: Muscle strength and tone normal. SPINE: No scoliosis or deformity SKIN: No rashes CENTRAL NERVOUS SYSTEM: Alert and oriented -3. No focal deficits, tone is normal in all 4 extremities. PSYCHIATRIC: Alert and oriented -3. Appropriate affect. Intact judgment and insight. - Labs CBC & Chem 7: 05/24/21 05:45 05/24/21 05:45 Assessment and Plan Plan: Assessment: #1. Acute hypoxic respiratory failure, related to COVID-19 pneumonia, patient presented to the emergency department on 05/22/2021 with 2 week history of cough, body aches. Patient was treated on outpatient basis with a combination of azithromycin and prednisone, without improvement. Not vaccinated against COVID-19. Outside the window for Remdesivir, was started on Decadron, prophylactic Lovenox #2. Increased inflammatory markers related to the above, improving #3. Mildly elevated d-dimer, we will follow #4. Nonsmoker #5. Hyperkalemia with potassium 5.9, possibly related to dehydration, will be followed and patient was given IV fluids, improved on today's lab #6. Plan: Clinically patient has remained stable Tolerating ambulation, currently down to 2-1/2 L of oxygen Exertional dyspnea and cough have improved No fever or chills Inflammatory markers were improving His had no acute events overnight From pulmonary perspective he stable for discharge home today on home oxygen at 2 L/m He can complete outpatient course of oral Decadron for 7 more days 6 mg daily He'll continue on COVID-19 multivitamins Outpatient follow-up with Dr. Pardo in the office in 2 weeks He was instructed to come back for reevaluation with worsening dyspnea or worsening hypoxia He will be given pulse oximeter to monitor his O2 saturation levels I performed a history & physical examination of the patient and discussed their management with my nurse practitioner, Yaquelin Dotson. I reviewed the nurse practitioner's note and agree with the documented findings and plan of care. Lung sounds are positive for diminished breath sounds with bilateral rales throughout the lung ledesma. The findings and the impression was discussed with the patient. I attest to the documentation by the nurse practitioner. Time with Patient: Less than 30
== END 2021-05-26 14:22 | disposition home or self-care (01) | DRG 177 ==
LOC: EC 14:03 → 4SSUR 20:58
PROVIDERS: ADMIT Internal Medicine; ATTEND Internal Medicine
DX: U07.1 COVID-19 (principal); J96.01 Acute respiratory failure with hypoxia; J12.82 Pneumonia due to coronavirus disease 2019; E87.5 Hyperkalemia; E86.0 Dehydration; E66.9 Obesity, unspecified; Z68.33 Body mass index [BMI] 33.0-33.9, adult; Z87.39 Personal history of other diseases of the musculoskeletal system and connective tissue; Z82.49 Family history of ischemic heart disease and other diseases of the circulatory system
CPT/HCPCS: 36415; 71046; 80048; 83615; 83735; 84145; 85025; 85379; 86140; 87635; 93970; 94640; 94760; 99285